=== PATIENT | male | born 1995 | race Caucasian/White ===

== ENCOUNTER 2017-05-02 18:50 | Emergency (ER) | payer OTHER ==
[2017-05-02 19:04] VITALS: O2SAT 96
--- NOTE | 2017-05-02 19:23 | EDPHY ---
H & P Time Seen by Provider: 05/02/17 19:14 HPI/ROS: Chief complaint. Right-sided chest pain HPI. 21-year-old male presents emergency department with right-sided chest pain that began this morning. He has had twinges the last 2 days but really began significantly this morning. He describes as sharp right-sided. It is worse with deep breath. No injury. No fever cough. Slight shortness of breath especially as he does not seem to be able to take a deep breath. No unusual leg pain or swelling. No similar symptoms previously. No abdominal pain, vomiting, diarrhea ROS Constitutional. no fever/chills, no weakness Eyes. no problems with vision ENT. no sore throat, no nasal drainage Cardiovascular. Right-sided chest pain Respiratory. no shortness of breath, no cough Abdominal. no abdominal pain, no nausea/vomiting, no diarrhea . no problems urinating MS. no calf pain/swelling, no neck/back pain, no joint pain Skin. no rash Lymph. no swollen glands Neuro. no headache, no dizziness, no difficulty walking or with speech Past Medical/Surgical History: Healthy Social History: Single, nonsmoker, no alcohol Smoking Status: Never smoked Physical Exam: General Appearance: Alert well-developed male mild distress vital signs are stable Eyes: Pupils equal and round no pallor or injection. ENT, Mouth: Mucous membranes are moist. Respiratory: There are no retractions, lungs are clear to auscultation. Cardiovascular: Regular rate and rhythm. Gastrointestinal: Abdomen is soft and nontender, no masses, bowel sounds normal. Neurological: Awake and alert, sensory and motor exams grossly normal. Skin: Warm and dry, no rashes. Musculoskeletal: Neck is supple nontender. Slightly tender to palpation to right anterior lateral chest at about T7, T8 lateral clavicular line Extremities symmetrical, full range of motion. Psychiatric: Patient is oriented X 3, there is no agitation. Constitutional: Initial Vital Signs Temperature (C) 36.8 C 05/02/17 19:01 Heart Rate 79 05/02/17 19:01 Respiratory Rate 16 05/02/17 19:01 Blood Pressure 142/80 H 05/02/17 19:01 O2 Sat (%) 96 05/02/17 19:01 O2 Delivery Mode Room Air Allergies/Adverse Reactions: No Known Allergies Allergy (Unverified 05/02/17 19:04) Home Medications: Medication Instructions Recorded NK [No Known Home Meds] 05/02/17 Medical Decision Making - Diagnostics EKG Interpretation: EKG interpreted by me shows normal sinus rhythm with normal interval and axis. QRS is normal there is no significant ST elevation or depression. There is early repolarization pattern noted. Rate is 67 Imaging Results: Imaging Impressions Chest X-Ray 05/02/17 19:34 Impression: No significant radiographic abnormality. Specifically, a source for chest pain is not identified. Chest x-ray reviewed by me and discussed Dr. Flannery shows no evidence of pneumothorax, rib fracture, pneumonia Procedures: IV normal saline IV Toradol ED Course/Re-evaluation: Re-evaluation 8:25 p.m. patient is stable. the patient and I discussed imaging, EKG, lab results. We discussed treatment plan including criteria for return importance of follow-up and further evaluation. He expresses understanding and agreement Differential Diagnosis: I consider rib fracture, pneumonia, pneumothorax, pulmonary embolus, acute coronary syndrome - Data Points Laboratory Results: Laboratory Results 05/02/17 19:52 05/02/17 19:52 05/02/17 05/02/17 05/02/17 19:52 19:52 19:52 WBC 9.86 10^3/uL H 10^3/uL (3.80-9.50) RBC 5.55 10^6/uL 10^6/uL (4.40-6.38) Hgb 17.2 g/dL g/dL (13.7-17.5) Hct 48.1 % % (40.0-51.0) MCV 86.7 fL fL (81.5-99.8) MCH 31.0 pg pg (27.9-34.1) MCHC 35.8 g/dL g/dL (32.4-36.7) RDW 12.9 % % (11.5-15.2) Plt Count 250 10^3/uL 10^3/uL (150-400) MPV 10.4 fL fL (8.7-11.7) Neut % (Auto) 70.0 % % (39.3-74.2) Lymph % (Auto) 22.9 % % (15.0-45.0) [place] % (Auto) 5.5 % % (4.5-13.0) Eos % (Auto) 1.1 % % (0.6-7.6) Baso % (Auto) 0.2 % L % (0.3-1.7) Nucleat RBC Rel Count 0.0 % % (0.0-0.2) Absolute Neuts (auto) 6.90 10^3/uL H 10^3/uL (1.70-6.50) Absolute Lymphs (auto) 2.26 10^3/uL 10^3/uL (1.00-3.00) Absolute Monos (auto) 0.54 10^3/uL 10^3/uL (0.30-0.80) Absolute Eos (auto) 0.11 10^3/uL 10^3/uL (0.03-0.40) Absolute Basos (auto) 0.02 10^3/uL 10^3/uL (0.02-0.10) Absolute Nucleated RBC 0.00 10^3/uL 10^3/uL (0-0.01) Immature Gran % 0.3 % % (0.0-1.1) Immature Gran # 0.03 10^3/uL 10^3/uL (0.00-0.10) D-Dimer < 0.27 ug/mLFEU ug/mLFEU (0.00-0.50) Sodium 136 mEq/L mEq/L (134-144) Potassium 4.2 mEq/L mEq/L (3.5-5.2) Chloride 102 mEq/L mEq/L (97-110) Carbon Dioxide 21 mEq/l L mEq/l (22-31) Anion Gap 13 mEq/L mEq/L (8-16) BUN 16 mg/dL mg/dL (7-23) Creatinine 1.0 mg/dL mg/dL (0.7-1.3) Estimated GFR > 60 Glucose 96 mg/dL mg/dL (70-100) Calcium 10.2 mg/dL mg/dL (8.5-10.4) Troponin I < 0.012 ng/mL ng/mL (0-0.034) Medications Given: Discontinued Medications Sodium Chloride (Ns) 1,000 mls @ 0 mls/hr IV ONCE ONE; Wide Open PRN Reason: Protocol Stop: 05/02/17 19:35 Last Admin: 05/02/17 20:10 Dose: 1,000 mls Departure - Departure Disposition: Home, Routine, Self-Care Clinical Impression: Chest pain Qualifiers: Chest pain type: chest pain on breathing Qualified Code(s): R07.1 - Chest pain on breathing Condition: Good Instructions: Chest Wall Pain (ED) Additional Instructions: Ibuprofen 6-800 mg every 6 hours for discomfort. Activity as tolerated. Return for worsening pain, breathing, fever. Recheck in 1-2 days if not improving Referrals: MINOO SALAMANCA [Other] - 2-3 days, if not improved
[2017-05-02] MEDS ORDERED: NS 1,000 ML IV ONE (19:34)
[2017-05-02 20:00] LABS: % IMMATURE GRANULYOCYTES 0.3 % (0.0-1.1); ABSOLUTE IMMATURE GRANULOCYTES 0.03 10^3/uL (0.00-0.10); ADD DIFF? NO; ADD MORPH? NO; ADD SCAN? NO; ATYPICAL LYMPHOCYTE FLAG 10 (0-99); FRAGMENT RBC FLAG 0 (0-99); HEMATOCRIT 48.1 % (40.0-51.0); HEMOGLOBIN 17.2 g/dL (13.7-17.5); LEFT SHIFT FLG 0 (0-99); LIPEMIA HEMOLYSIS FLAG 90 (0-99); MEAN CELL HEMOGLOBIN CONCENTR. 35.8 g/dL (32.4-36.7); MEAN CELL VOLUME 86.7 fL (81.5-99.8); MEAN PLATELET VOLUME 10.4 fL (8.7-11.7); PLATELET CLUMPS FLAG 0 (0-99); PLATELET COUNT 250 10^3/uL (150-400); RED BLOOD CELL COUNT 5.55 10^6/uL (4.40-6.38); RED CELL DISTRIBUTION WIDTH 12.9 % (11.5-15.2)
[2017-05-02 20:14] LABS: ANION GAP 13 mEq/L (8-16); CALCIUM 10.2 mg/dL (8.5-10.4); CARBON DIOXIDE 21 mEq/l (22-31); CHLORIDE 102 mEq/L (97-110); GLOMERULAR FILTRATION RATE > 60; GLUCOSE 96 mg/dL (70-100); POTASSIUM 4.2 mEq/L (3.5-5.2); SODIUM 136 mEq/L (134-144)
--- NOTE | 2017-05-02 20:14 | CPEKG ---
Heart Rate: 67 RR Interval: 896 P-R Interval: 152 QRSD Interval: 92 QT Interval: 388 QTC Interval: 410 P [place]: 56 QRS [place]: 80 T Wave [place]: 66 EKG Severity - NORMAL ECG - EKG Impression: SINUS RHYTHM EKG Impression: ST ELEV, PROBABLE NORMAL EARLY REPOL PATTERN Electronically Signed By: Vladimir Callaway 02-May-2017 21:04:12
[2017-05-02 20:24] LABS: TROPONIN I < 0.012 ng/mL (0-0.034)
[2017-05-02] MEDS ORDERED: KETOROLAC 30 MG/1 ML SDV IVP ONE (20:37)
[2017-05-02 20:55] VITALS: BP 124/72; PULSE 65; RESP 18; TEMP 97.7
== END 2017-05-02 20:55 | disposition home or self-care (01) ==
DX: R07.1 Chest pain on breathing (principal)
CPT/HCPCS: 96374; J1885